=== PATIENT | male | born 1990 | race African-American/Black ===

== ENCOUNTER 2022-10-28 09:31 | Emergency (ER) | payer OTHER ==
[2022-10-28 09:36] VITALS: PULSE 51; RESP 18; BMI 34.2
[2022-10-28] MEDS ORDERED: KETOROLAC TROMETHAMINE 30 MG/1 ML VIAL IM ONE (10:26)
[2022-10-28] MEDS ORDERED: KETOROLAC TROMETHAMINE 30 MG/1 ML VIAL ONE (10:29)
[2022-10-28 12:07] VITALS: BP 121/85; TEMP 98.5
== END 2022-10-28 12:08 | disposition home or self-care (01) ==
LOC: JERFT 09:31
PROC: 3E0233Z Introduction of Anti-inflammatory into Muscle, Percutaneous Approach (ICD-10-PCS; principal; 2022-10-28)
DX: M25.532 Pain in left wrist (principal); W22.8XXA Striking against or struck by other objects, initial encounter; Y92.000 Kitchen of unspecified non-institutional (private) residence as the place of occurrence of the external cause
CPT/HCPCS: 73110-TC-LT-FY; 73130-TC-LT-FY; 99284-25

== ENCOUNTER 2024-02-05 08:22 | Emergency (ER) | payer OTHER ==
[2024-02-05 08:41] VITALS: BP 128/80; PULSE 64; TEMP 98.5; BMI 36.0
[2024-02-05 09:20] LABS: URINE APPEARANCE CLEAR; URINE BILIRUBIN NEGATIVE (NEGATIVE); URINE COLOR YELLOW; URINE GLUCOSE (UA) NEGATIVE (NEGATIVE); URINE KETONE NEGATIVE (NEGATIVE); URINE LEUK ESTERASE NEGATIVE (NEGATIVE); URINE NITRITE NEGATIVE (NEGATIVE); URINE PROTEIN NEGATIVE (NEGATIVE)
[2024-02-05] MEDS ORDERED: FAMOTIDINE 20 MG/50 ML IVPB 20 MG/50 ML MG IVPB ONE (10:08)
[2024-02-05 10:27] LABS: BASO % 0.5 % (0-2.0); EOS % 1.7 % (0-4.5); HEMATOCRIT 44.9 % (35.4-49); HEMOGLOBIN 15.5 GM/dL (11.7-16.9); LYMPH % 19.9 % (8-40); MCH 31.2 pg (25.7-33.7); MCHC 34.6 g/dl (32.0-35.9); MEAN CELL VOLUME 90.3 fl (80-96); MEAN PLT VOLUME 7.7 fl (7.5-11.1); MONO % 8.2 % (3.8-10.2); NEUT % 69.7 % (42.8-82.8); PLATELET COUNT 304 10^3/uL (134-434); RBC 4.97 M/mm3 (4.00-5.60); RDW 13.8 % (11.9-15.9); WHITE BLOOD COUNT 10.6 K/mm3 (4.0-10.0)
[2024-02-05] MEDS: FAMOTIDINE 20 MG/50 ML IVPB 20 MG/50 ML MG IVPB ONE (10:32)
[2024-02-05] MEDS: SODIUM CHLORIDE 0.9% 500 ML INFUS.BAG IV ONE (10:32)
[2024-02-05 10:51] LABS: POTASSIUM 4.7 mmol/L (3.5-5.1)
[2024-02-05 10:54] LABS: ALBUMIN 3.9 g/dl (3.4-5.0); CALCIUM 9.4 mg/dL (8.5-10.1)
[2024-02-05 10:57] LABS: CREATININE 1.1 mg/dL (0.55-1.3)
[2024-02-05 10:58] LABS: BILIRUBIN,TOTAL 0.8 mg/dL (0.2-1); TOT PROT 7.5 g/dl (6.4-8.2)
[2024-02-05 11:11] LABS: BLOOD UREA NITROGEN 13.6 mg/dL (7-18)
[2024-02-05 13:07] VITALS: RESP 18
== END 2024-02-05 13:07 | disposition home or self-care (01) ==
LOC: JER 08:22
PROC: 3E033GC Introduction of Other Therapeutic Substance into Peripheral Vein, Percutaneous Approach (ICD-10-PCS; principal; 2024-02-05)
DX: K29.70 Gastritis, unspecified, without bleeding (principal); R10.11 Right upper quadrant pain
CPT/HCPCS: 36415; 76705-TC; 80053; 81003; 83690; 85025; 87086; 99284-25